=== PATIENT | female | born 1990 | race Caucasian/White ===

== ENCOUNTER → 2023-05-07 | Outpatient (CLI) | payer OTHER, SELFPAY ==
[2023-05-11 06:07] LABS: Chlamydia By Nucleic Acid AMP Positive (Negative); Gonococcus By Nucleic Acid AMP Negative (Negative)
[2023-05-14 17:07] LABS: HPV APTIMA, High Risk Negative (Negative)
[2023-05-15 19:20] LABS: HPV Reflexed? YES, CHARGE PATIENT
== END | disposition home or self-care (01) ==
PROVIDERS: Visit Provider Registered Nurse
DX: N93.0 Postcoital and contact bleeding (principal)
CPT/HCPCS: 87491; 87591; 87624; 88175; G0145